=== PATIENT | female | born 1935 | race Caucasian/White ===

== ENCOUNTER → 2018-04-13 | Outpatient (CLI) | payer MEDICARE ==
--- NOTE | 2018-04-14 08:31 | Diagnostic Imaging Report ---
#[id number] - MGDXBIL #BILATERAL DIGITAL DIAGNOSTIC MAMMOGRAM WITH CAD: 04/13/2018 Comparison is made to exams dated: 03/31/2016 mammogram and 04/05/2017 mammogram - [facility]. Current study contains 6 films. The tissue of both breasts is heterogeneously dense. This may lower the sensitivity of mammography. Current study was also evaluated with a Computer Aided Detection (CAD) system. There are benign vascular calcifications in both breasts. There also are benign scattered calcifications in both breasts. Additionally there are post operative findings in the right breast with scarring and retraction in the lower medial aspect. No significant masses, calcifications, or other findings are seen in either breast. There has been no significant interval change. IMPRESSION: BENIGN There is no mammographic evidence of malignancy. A 1 year screening mammogram is recommended. The patient will be notified by letter of the results. Nolberto Truong Jr., D.O. cw/:04/13/2018 14:48:41 Drop Wire Operator: Sonia CLEMENT(Kathya)(M), [facility] letter sent: Compared to Prior B9 Mammogram BI-RADS: 2 Benign
== END ==
LOC: MAMMO 13:20
PROVIDERS: ATTEND Family Medicine
DX: N64.59 Other signs and symptoms in breast (principal)
CPT/HCPCS: 77066

== ENCOUNTER → 2019-04-14 | Outpatient (CLI) | payer MEDICARE ==
--- NOTE | 2019-04-17 08:27 | Diagnostic Imaging Report ---
#[id number] - MGDXBIL #BILATERAL DIGITAL DIAGNOSTIC MAMMOGRAM WITH CAD: 04/14/2019 CLINICAL: Routine screening. Comparison is made to exams dated: 04/13/2018 mammogram and 04/05/2017 mammogram - [facility]. Current study contains 6 films. The tissue of both breasts is heterogeneously dense. This may lower the sensitivity of mammography. Current study was also evaluated with a Computer Aided Detection (CAD) system. There are benign vascular calcifications in both breasts. There also are benign scattered calcifications in both breasts. Additionally there are post operative findings in the right breast with a scar present and area of distortion. There is a mole marker on the left breast. No significant masses, calcifications, or other findings are seen in either breast. There has been no significant interval change. IMPRESSION: BENIGN There is no mammographic evidence of malignancy. A 1 year screening mammogram is recommended. The patient will be notified by letter of the results. Nolberto Truong Jr., D.O. cw/:04/14/2019 15:22:36 Project Planner: Sonia CLEMENT(R)(M), [facility] letter sent: Compared to Prior B9 Mammogram BI-RADS: 2 Benign
== END ==
LOC: MAMMO 10:24
PROVIDERS: ATTEND Family Medicine
DX: R92.1 Mammographic calcification found on diagnostic imaging of breast (principal)
CPT/HCPCS: 77066

== ENCOUNTER → 2022-06-19 | Outpatient (CLI) | payer MEDICARE | LOC: MAMMO 10:43 | PROVIDERS: ATTEND Family Medicine | DX: Z12.31 Encounter for screening mammogram for malignant neoplasm of breast (principal) | CPT/HCPCS: 77067 ==